=== PATIENT | female | born 1955 | race Caucasian/White ===

== ENCOUNTER 2016-11-04 17:06 | Emergency (ER) | payer OTHER ==
[~2016-11-04] VITALS: Ht 144.8 cm; Wt 34.0 kg
[~2016-11-04 17:06] MED LIST: CIPR500T4 PO; HYDR-902 PO; METH-417 PO; METR500T PO; ONDA4TAB14 PO; PROP10TA6 PO; TRAZ100T15 PO; VENL100T PO
[2016-11-04 17:09] VITALS: Ht 144.8 cm; Wt 34.0 kg
[2016-11-04] MEDS ORDERED: SOD CHLORIDE 0.9% 500 ML IV STA (20:00)
[2016-11-04] MEDS ORDERED: ONDANSETRON 4 MG INJ IV STA (20:00)
[2016-11-04 20:24] LABS: BASOPHIL # 0.1 10^3/ul (0.0-0.1); BASOPHILS % 0.5 % (0.0-2.0); EOSINOPHILS # 0.6 10^3/ul (0.0-0.5); EOSINOPHILS % 4.1 % (0.0-7.0); HEMATOCRIT 38.8 % (37.0-47.0); HEMOGLOBIN 12.3 g/dl (12.0-16.0); LYMPHOCYTES % 13.8 % (15.0-51.0); MEAN CORPUSCULAR HEMOGLOBIN 30.2 pg (29.0-33.0); MEAN CORPUSCULAR HGB CONC 31.7 g/dl (32.0-37.0); MEAN CORPUSCULAR VOLUME 95.3 fl (82.0-101.0); MEAN PLATELET VOLUME 10.6 fl (7.4-10.4); MONOCYTE # 0.7 10^3/ul (0.3-0.9); MONOCYTES % 4.8 % (0.0-11.0); NEUTROPHILS % 76.5 % (39.0-77.0); PLATELET COUNT 304 10^3/UL (140-415); RED BLOOD COUNT 4.07 10^6/ul (4.20-5.40); RED CELL DISTRIBUTION WIDTH 12.3 % (11.5-14.5); WHITE BLOOD COUNT 14.8 10^3/ul (4.8-10.8)
[2016-11-04 20:29] LABS: INR 0.91; PROTIME 12.3 Sec (12.2-14.2)
[2016-11-04 20:30] LABS: PARTIAL THROMBOPLASTIN TIME 21.2 Sec (25.0-35.0)
[2016-11-04 20:34] LABS: ALBUMIN 4.5 g/dl (3.3-4.9); ALBUMIN/GLOBULIN RATIO 1.5; BILIRUBIN,INDIRECT 0.2 mg/dl (0-1.1); BILIRUBIN,TOTAL 0.2 mg/dl (0.2-1.3); CALCIUM 9.7 mg/dl (8.4-10.2); POTASSIUM 4.3 mmol/L (3.5-5.1); TOTAL PROTEIN 7.5 g/dl (6.1-8.1)
--- NOTE | 2016-11-04 20:56 | RADRPT ---
PROCEDURE: CT Abdomen and Pelvis without contrast. CLINICAL INDICATION: Abdominal pain TECHNIQUE: CT scan of the abdomen and pelvis without contrast was performed on a multidetector hig h-resolution CT scanner. The patient was scanned without intravenous contrast. Coronal and sagittal reformatted images were obtained from the axial source images. Images were reviewed on a high-resol [employer] PACS workstation. The total exam CTDI equals 3.91 mGy and the total exam DLP equals 172.31 mGy -cm. One or more of the following dose reduction techniques were used: Automated exposure control. Adjustment of the mA and/or kV according to patient size. Use of iterative reconstruction technique. COMPARISON: CT abdomen and pelvis 10/29/2015. FINDINGS: CT abdomen: The lung bases are clear. The heart size is normal, without pericardial thickening or effusion. Th e liver is normal in size and density without focal mass or intrahepatic biliary dilatation. The sp connie is normal in size and homogeneous in density. The stomach is partially collapsed, but is gross ly unremarkable. The pancreas as visualized is normal. The gallbladder is unremarkable. There is n o evidence for biliary dilatation. The adrenal glands are symmetric and normal. The kidneys are nor mal in size with no hydronephrosis. Multiple small nonobstructing renal stones measures up to 3 mm are again identified. Redemonstrated is approximately 2 cm cortical cyst in the lower pole left kidn ey. The aorta is of normal caliber. There is no retroperitoneal lymphadenopathy. The rajni hepatis marian on is clear. There are multiple moderately dilated loops of small bowel with decompressed distal il eal loops with probable transition point in the right adriana pelvis in keeping with at least partial s mall bowel obstruction. There is mild mesenteric edema. CT pelvis: The small bowel loops situated within the pelvis are unremarkable. The uterus is not identified. T he pelvic sidewalls and inguinal regions are clear. The sigmoid colon and rectum are unremarkable. No mass, lymphadenopathy, or free fluid is seen. No acute inflammation is seen. The surrounding o sseous structures are remarkable for degenerative spondylosis of the spine. No osteolytic or osteob lastic lesion is detected. There is grade 1 anterolisthesis of L4 on L5. IMPRESSION: 1. Mildly dilated multiple loops of proximal small bowel with decompressed distal ileal loops in ke eping with at least partial small bowel obstruction. Probable transition point in the right adriana pe lvis. Mild mesenteric edema. No intraperitoneal fluid. 2. Multiple small nonobstructing bilateral renal stones. RPTAT: HHO .Yousuf Sullivan MD, Date Time Electronically viewed and signed by .Yousuf Sullivan MD, on 11/04/2016 20:55 .O/
[2016-11-04] MEDS ORDERED: morphine 4 MG/ML VIAL IV STA (21:24)
--- NOTE | 2016-11-04 22:29 | ERD ---
ER Documentation Chief Complaint Date/Time DATE: 11/04/16 TIME: 22:29 Chief Complaint AP WITH NAUSEA, DENIES DIZZINESS, AFEBRILE-ACTIVE VOMITING NOW HPI 61-year-old female is presenting with nausea vomiting and abdominal distention with pain for the past 2 days. Vomiting is nonbloody and nonbilious. She is able to pass some gas but has not had a bowel movement today. She was here a few days ago for abdominal pain and was diagnosed with enteritis. She does have a history significant for small bowel obstruction and multiple abdominal surgeries. ROS All systems reviewed and are negative except as per history of present illness. Medications Home Meds Active Scripts Metronidazole* (Flagyl*) 500 Mg Tablet, 500 MG PO TID for 7 Days, TAB Prov:SHELIA SMITH MD 10/29/15 Ciprofloxacin Hcl* (Ciprofloxacin Hcl*) 500 Mg Tablet, 500 MG PO BID for 7 Days , TAB Prov:SHELIA SMITH MD 10/29/15 Ondansetron (Ondansetron Odt) 4 Mg Tab.rapdis, 4 MG PO Q6H Y for NAUSEA AND/OR VOMITING, #30 TAB Prov:SHELIA SMITH MD 10/29/15 Hydrocodone/Acetaminophen ([place] 10-325 Tablet) 1 Each Tablet, 1 TAB PO Q6H Y for PAIN, #7 TAB Prov:SHELIA SMITH MD 10/29/15 Reported Medications Venlafaxine Hcl* (Venlafaxine Hcl*) 100 Mg Tablet, 200 MG PO DAILY, TAB 10/29/15 Propranolol Hcl* (Propranolol Hcl*) 10 Mg Tablet, 10 MG PO DAILY, TAB 10/29/15 Trazodone Hcl* (Trazodone Hcl*) 100 Mg Tablet, 200 MG PO QHS, #30 TAB 10/29/15 Methadone Hcl* (Methadone*) 5 Mg Tab, 5 MG PO DAILY, TAB 10/29/15 Allergies Allergies: Coded Allergies: No Known Allergy (Unverified , 10/29/15) PMhx/Soc History of Surgery: Yes (small bowel obstruction, hysterectomy) Anesthesia Reaction: No Hx Neurological Disorder: No Hx Respiratory Disorders: No Hx Cardiac Disorders: No Hx Psychiatric Problems: Yes (DEPRESSION) Hx Miscellaneous Medical Probl: Yes (METHADONE USE, TREMORS) Hx Alcohol Use: No Hx Substance Use: No Hx Tobacco Use: No Sm[facility] History: No diabetes Physical Exam Vitals Vital Signs Date Time Temp Pulse Resp B/P Pulse Ox O2 Delivery O2 Flow Rate FiO2 11/04/16 21:24 97.6 69 17 131/63 100 Room Air 11/04/16 17:09 98.6 79 22 135/84 99 Physical Exam Const: Appears to be in distress secondary to pain, nontoxic Head: Atraumatic Eyes: Normal Conjunctiva ENT: Normal External Ears, Nose and Mouth. Neck: Full range of motion. No meningismus. Resp: Clear to auscultation bilaterally Cardio: Regular rate and rhythm, no murmurs Abd: Distended, tympanitic to palpation, diffusely tender, no peritoneal signs. Hyperactive bowel sounds Skin: No petechiae or rashes Back: No midline or flank tenderness Ext: No cyanosis, or edema Neur: Awake and alert Psych: Normal Mood and Affect Result Diagram: 11/04/16 1950 11/04/16 1950 Results 24 hrs Laboratory Tests Test 11/04/16 19:50 White Blood Count 14.810^3/ul Red Blood Count 4.0710^6/ul Hemoglobin 12.3g/dl Hematocrit 38.8% Mean Corpuscular Volume 95.3fl Mean Corpuscular Hemoglobin 30.2pg Mean Corpuscular Hemoglobin Concent 31.7g/dl Red Cell Distribution Width 12.3% Platelet Count 96064^3/UL Mean Platelet Volume 10.6fl Neutrophils % 76.5% Lymphocytes % 13.8% Monocytes % 4.8% Eosinophils % 4.1% Basophils % 0.5% Nucleated Red Blood Cells % 0.0/100WBC Neutrophils # (Manual) 11.310^3/ul Lymphocytes # 2.010^3/ul Monocytes # 0.710^3/ul Eosinophils # 0.610^3/ul Basophils # 0.110^3/ul Nucleated Red Blood Cells # 0.010^3/ul Prothrombin Time 12.3Sec Prothrombin Time Ratio 1.0 INR International Normalized Ratio 0.91 Activated Partial Thromboplast Time 21.2Sec Sodium Level 141mmol/L Potassium Level 4.3mmol/L Chloride Level 100mmol/L Carbon Dioxide Level 30mmol/L Anion Gap 15 Blood Urea Nitrogen 17mg/dl Creatinine 1.00mg/dl Glucose Level 166mg/dl Calcium Level 9.7mg/dl Total Bilirubin 0.2mg/dl Direct Bilirubin 0.00mg/dl Indirect Bilirubin 0.2mg/dl Aspartate Amino Transf (AST/SGOT) 37IU/L Alanine Aminotransferase (ALT/SGPT) 39IU/L Alkaline Phosphatase 71IU/L Total Protein 7.5g/dl Albumin 4.5g/dl Globulin 3.00g/dl Albumin/Globulin Ratio 1.50 Lipase 70U/L Current Medications Medications (Trade) Dose Ordered Sig/Carlos Route PRN Reason Start Time Stop Time Status Last Admin Dose Admin Sodium Chloride (NS) 500 ml @ 500 mls/hr Q1H STAT IV 11/04/16 20:00 11/04/16 20:59 DC 11/04/16 20:16 Ondansetron HCl (Zofran Inj) 4 mg ONCE STAT IV 11/04/16 20:00 11/04/16 20:01 DC 11/04/16 20:16 Morphine Sulfate (morphine) 4 mg ONCE STAT IV 11/04/16 21:24 11/04/16 21:25 DC 11/04/16 21:34 Procedures/MDM CBC: leukocytosis CMP: no acute abnormalities CT Abdomen/pelvis: Shows small bowel obstruction per radiology MDM Patient is presenting with symptoms and signs of a small bowel obstruction. Vitals are stable. IV was placed, fluids started, pain medications given, antiemetics given. CT scan showed partial small bowel obstruction with a transition point. NG tube was placed. I spoke with Antoine who accepted the patient for transfer. I believe she is stable for transfer at this time. Departure Diagnosis: Primary Impression: Partial obstruction of small intestine Condition: Serious AMPARO PEREYRA MD Nov 04, 2016 22:29
--- NOTE | 2016-11-04 23:58 | RADRPT ---
PROCEDURE: XR Abdomen. CLINICAL INDICATION: NG tube placement TECHNIQUE: AP abdomen x-ray. COMPARISON: CT abdomen 11/04/2016 FINDINGS: Gaseous distension central small bowel loops suggestive of ileus. Marked fecal retention compatible with constipation. NG tube tip overlies the stomach antrum. No evidence of free air. There are no abnormal calcifications overlying the urinary tracts. The osseus structures are unremarkable. IMPRESSION: 1. NG tube tip overlying the body of the stomach. 2. Gaseous distension of small bowel suggestive of focal ileus. 3. Marked retained fecal material within the colon compatible with constipation. RPTAT:AAJJ Physician Celina Date Time Electronically viewed and signed by Physician Celina on 11/04/2016 23:58 HENRY/
[2016-11-05 00:28] VITALS: BP 118/60; PULSE 84; RESP 20; TEMP 98.1
[2016-11-05 00:51] LABS: ADD UMIC YES; UR ASCORBIC ACID NEGATIVE (NEGATIVE); UR BILIRUBIN (Dip) NEGATIVE (NEGATIVE); UR BLOOD (Dip) 2+ mg/dL (NEGATIVE); UR CLARITY SLIGHTLY CLOUDY (CLEAR); UR COLOR YELLOW (YELLOW); UR GLUCOSE (Dip) NEGATIVE (NEGATIVE); UR KETONES (Dip) TRACE mg/dL (NEGATIVE); UR LEUKOCYTE ESTERASE (Dip) NEGATIVE Leu/ul (NEGATIVE); UR MUCUS FEW /HPF (NONE SEEN); UR NITRITE (Dip) NEGATIVE (NEGATIVE); UR RBC 36 /HPF (0-5); UR SPECIFIC GRAVITY (Dip) 1.019 (1.003-1.030); UR SQUAMOUS EPITHELIAL CELL FEW /HPF (FEW); UR TOTAL PROTEIN (Dip) NEGATIVE (NEGATIVE); UR UROBILINOGEN (Dip) NEGATIVE (NEGATIVE)
== END 2016-11-04 21:36 | disposition short-term general hospital (02) ==
LOC: E/R 17:06
DX: K56.69 Other intestinal obstruction (principal); R11.2 Nausea with vomiting, unspecified; R40.2142 Coma scale, eyes open, spontaneous, at arrival to emergency department; R40.2252 Coma scale, best verbal response, oriented, at arrival to emergency department; R40.2362 Coma scale, best motor response, obeys commands, at arrival to emergency department
CPT/HCPCS: 36415; 74000; 74176; 80053; 83690; 85025; 85610; 85730; 93005; 96374; 96375; J2270; J2405; J7040; Z7502; 81001